=== PATIENT | female | born 2000 | race Caucasian/White ===

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

== ENCOUNTER 2022-02-19 11:14 | Outpatient (CLI) | payer BC, SELFPAY ==
[2022-02-19 11:47] LABS: Abs Immature Grans 0.03 10^3/uL (0.0-0.06); Absolute Basophil Count 0.05 10^3/uL (0.0-0.2); Absolute Eosinophil Count 0.03 10^3/uL (0.0-0.7); Absolute Lymphocyte Count 0.43 10^3/uL (1.2-3.4); Absolute Monocyte Count 1.03 10^3/uL (0.1-0.8); Absolute Neutrophil Count 5.85 10^3/uL (1.2-6.7); Basophils % 0.7; Eosinophils % 0.4; HCT 39.3 % (36.0-46.0); HGB 13.2 g/dL (11.2-15.7); Immature Grans % 0.4; Lymphocytes % 5.8; MCH 30.6 pg (27.0-33.0); MCHC 33.6 % (32.0-36.0); MCV 91 fL (80-95); MPV 9.7 fL (8.0-11.0); Monocytes % 13.9; Neutrophils % 78.8; Platelet Count 294 10^3/uL (130-400); RBC 4.32 10^6/uL (3.93-5.22); RDW 12.7 % (11.7-14.6); RDW-SD 41.8 fL; WBC 7.42 10^3/uL (4.4-10.8)
[2022-02-19 11:53] LABS: ESR 11 mm/hr (0-20)
[2022-02-19 12:18] LABS: ALT 40 U/L (14-59); AST 23 U/L (15-37); Albumin 4.2 g/dL (3.4-5.0); Alkaline Phosphatase 95 U/L (46-116); Anion Gap 8.6 mmol/L (3-11); BUN 14 mg/dL (7-18); Bilirubin, Total 0.2 mg/dL (0.2-1.0); C-Reactive Protein 0.17 mg/dL (0.0-0.3); CO2 28.4 mmol/L (21.0-32.0); Calcium 9.6 mg/dL (8.5-10.1); Chloride 103 mmol/L (98-107); Estimated GFR 83.23 (mL/min/1.73m2); Glucose 77 mg/dL (74-106); Potassium 3.7 mmol/L (3.5-5.1); Sodium 140 mmol/L (136-145); Total Protein 7.7 g/dL (6.4-8.2)
[2022-02-19 12:32] LABS: Vitamin D 25 Total 39.1 ng/mL (30-100)
[2022-02-20 14:24] LABS: Chlamydia Result Negative (Negative); GC Result Negative (Negative)
[2022-02-21 13:05] LABS: IgA 167 mg/dL (85-499); Interpretation (See Note); Tissue Transglutaminase IgA 2.2 U/mL (<4.0)
== END 2022-02-19 11:15 | disposition home or self-care (01) ==
LOC: LBO 11:14
PROVIDERS: PCP Nurse Practitioner Pediatrics; Visit Provider Student in an Organized Health Care Education/Training Program
DX: R10.9 Unspecified abdominal pain (principal); R53.83 Other fatigue; R19.5 Other fecal abnormalities; Z11.3 Encounter for screening for infections with a predominantly sexual mode of transmission
CPT/HCPCS: 80053; 82306; 82784; 83516; 85652; 87491; 87591; 84443; 85025; 86140

== ENCOUNTER 2022-02-19 11:17 | Outpatient (REF) | payer BC, SELFPAY ==
[2022-02-22 08:23] LABS: Chlamydia Result Negative (Negative); GC Result Negative (Negative)
== END 2022-02-19 11:18 | disposition home or self-care (01) ==
LOC: LBN 11:17
PROVIDERS: PCP Nurse Practitioner Pediatrics; Referring Provider Student in an Organized Health Care Education/Training Program; Visit Provider Student in an Organized Health Care Education/Training Program
DX: Z11.3 Encounter for screening for infections with a predominantly sexual mode of transmission (principal)
CPT/HCPCS: 87491; 87591

== ENCOUNTER → 2022-04-18 11:02 | Outpatient (CLI) | payer BC, SELFPAY ==
--- NOTE | 2022-04-18 09:21 | DI.RAD_ITS ---
Exam(s) XR KNEE LT 4V AP,LAT,AGGIE,PAT EXAM: XR KNEE LT 4V AP,LAT,AGGIE,PAT CLINICAL HISTORY: athlete with persist painful nodule left patella, lt knee pain, M25.562. TECHNIQUE: 2D digital imaging was performed. COMPARISON: No exams were available for comparison FINDINGS: Four views: No evidence of fracture nor joint effusion. Bone density is normal. No osseous lesions nor osteocho ndral defects. No degenerative changes. No abnormal soft tissue calcifications. IMPRESSION: No significant radiograph findings in the left knee. DATA REPOSITORY: RADIATION DOSE DELIVERED:
--- NOTE | 2022-04-18 09:21 | DI.RAD_ITS ---
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 TECHNIQUE: 2D digital imaging was performed. COMPARISON: No exams were available for comparison FINDINGS: 3 views There is no evidence of fracture or diastasis of the Lisfranc joint. Bone density normal. No osseou s lesions nor erosions. No degenerative changes. No pes planus. IMPRESSION: No significant osseous findings in the foot. DATA REPOSITORY: RADIATION DOSE DELIVERED:
== END ==
PROVIDERS: PCP Nurse Practitioner Pediatrics; Visit Provider Nurse Practitioner Pediatrics
DX: M25.562 Pain in left knee (principal); M79.671 Pain in right foot
CPT/HCPCS: 73564; 73630

== ENCOUNTER 2025-03-29 12:12 | Outpatient (CLI) | payer BC, SELFPAY ==
[2025-03-30 10:21] LABS: Rubella IgG Ab (UVM) Positive (See Note)
[2025-03-30 10:25] LABS: HBs Antibody, Quant <3.1 mIU/mL (See Note); Hepatitis B Surface Ab Negative (See Note)
[2025-03-31 13:41] LABS: TB Interpretation Negative (Negative); TB1 Ag minus Nil 0.01 IU/mL; TB2 Ag minus Nil 0.02 IU/mL
== END 2025-03-29 12:13 | disposition home or self-care (01) ==
LOC: LBO 12:13
PROVIDERS: Visit Provider Physician Assistant
DX: Z02.0 Encounter for examination for admission to educational institution (principal)
CPT/HCPCS: 36415; 86706; 86787; 86480; 86735; 86762; 86765